=== PATIENT | female | born 1960 | race Caucasian/White ===

== ENCOUNTER → 2017-02-05 | Outpatient (CLI) | payer BC ==
--- NOTE | 2017-02-05 13:51 | KCIC ---
THORACIC SPINE 3V Indication: Right mid upper back pain for 6 months. . Comparison: No comparison is available. FINDINGS: No evidence of an acute fracture. Alignment is intact without significant subluxation. No evidence of paraspinal soft tissue swelling. IMPRESSION: No obvious acute radiographic abnormality. Consider MRI thoracic spine if further workup is warranted. Electronically signed by: Kian Poole MD (02/05/2017 1:48 PM) [facility]-KCIC2
== END | disposition home or self-care (01) ==
LOC: KCIC 13:07
PROVIDERS: ATTEND Family Medicine
DX: M54.6 Pain in thoracic spine (principal)
CPT/HCPCS: 72072

== ENCOUNTER → 2017-03-02 | Outpatient (CLI) | payer BC ==
--- NOTE | 2017-03-02 14:17 | KCIC ---
Indication: Right-sided back pain for 6 months, recent fall Technique: Axial images and coronal and sagittal reformatted images are provided. Comparison is made to radiographs from February 05, 2017. One or more of the following individualized dose reduction techniques were utilized for this examination: 1. Automated exposure control 2. Adjustment of the mA and/or kV according to patient size 3. Use of iterative reconstruction technique Findings: There is no fracture. Vertebral body height is maintained throughout. There is endplate sclerosis anteriorly at T9-T10. This appears degenerative with mild spurring anteriorly at this level. There is no malalignment. There is no definite high-grade canal or foraminal compromise at any level. Patient appears to have transitional type anatomy. 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 What is considered L1 has a nonunited right transverse process. There is apical scarring. There is emphysema which is at least moderate. IMPRESSION: 1. Negative for fracture in the thoracic spine. 2. Mild degenerative changes greatest at T9-T10. 3. 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 L1 right transverse process is nonunited. 4. Emphysema and presumed apical scarring. Electronically signed by: Marcel Grissom MD (03/02/2017 2:14 PM) [facility]KCIC[facility]
== END | disposition home or self-care (01) ==
LOC: KCIC CT 13:06
PROVIDERS: ATTEND Family Medicine
DX: M51.24 Other intervertebral disc displacement, thoracic region (principal); J43.9 Emphysema, unspecified; W19.XXXD Unspecified fall, subsequent encounter
CPT/HCPCS: 72128

== ENCOUNTER 2018-08-19 11:19 | Inpatient (IN) | payer OTHER ==
[~2018-08-19] VITALS: Ht 157.5 cm; Wt 39.7 kg
--- NOTE | 2018-08-19 13:33 | HP ---
ADMIT DATE: 08/19/2018 CHIEF COMPLAINT: Syncopal episode and atrial fibrillation. HISTORY OF PRESENT ILLNESS: A 58-year-old white female who was seen in the office on the day of admission having had what sounds like a syncopal episode 2 days prior to admission. She was standing in her garden and then she woke up and had some pain in her head and her upper chest and some abrasions. She does not recall falling or any chest pain, shortness of breath or any other specific complaints recently. In the office, she was found to be in atrial fibrillation with controlled ventricular response and because of the etiology of the syncope and the uncertainty of the cardiac arrhythmia or duration, she was admitted. MEDICATIONS: Listed per the chart. MEDICAL HISTORY: No previous cardiovascular history. SOCIAL HISTORY: Smoker, , nondrinker. No prior lab abnormalities. REVIEW OF SYSTEMS: No other specific complaints at this time. She specifically denies anginal type symptoms or arrhythmias. OBJECTIVE: HEAD: Some abrasions on the forehead, but no lacerations. EYES, EARS, NOSE AND THROAT: Clear. NECK: No carotid bruits, JVD, nodes or thyroid enlargement. CARDIOVASCULAR: Regular rate, feels moderately irregular at times. No murmurs heard. ABDOMEN: Soft, benign and nontender. NEUROLOGIC: She moves all extremities. Cranial nerves 2 through 12 intact. Cerebellar, motor, sensory and reflexes are normal. No ataxia or gait abnormalities are noted. GENITOURINARY AND RECTAL: Deferred. ASSESSMENT: 1. Syncope, etiology undetermined, must consider cardiovascular source. 2. Atrial fibrillation that may be intermittent and duration and etiology is unknown. 4. Chronic obstructive pulmonary disease and chronic tobacco abuse. PLAN: As ordered. ANJU DIANA MD DR: CORNELIUS/niranjan JOB#: [id number] / [id number]
[2018-08-19 13:53] VITALS: BP 130/80
[2018-08-19] MEDS: GABAPENTIN 300 MG CAPSULE. PO SCH ×2 (14:00→15:40)
--- NOTE | 2018-08-19 14:00 | NUR ---
The patient, CHONG PATEL, 58 y/o, F admitted by ANJU DIANA MD, was given written information regarding hospital policies, unit procedures and contact persons. Valuables were checked and kept with patient at bedside. Home medications given back to patient's significant other to bring back home.
[2018-08-19] MEDS ORDERED: TEMA30CA PO (14:05)
[2018-08-19] MEDS ORDERED: IBUP-1027 PO (14:05)
[2018-08-19] MEDS ORDERED: ALEN70TA6 PO (14:05)
[2018-08-19] MEDS ORDERED: GABA300C18 PO (14:05)
[2018-08-19] MEDS ORDERED: CYCL10TA2 PO (14:05)
[2018-08-19] MEDS ORDERED: GABA600T7 PO (14:05)
[2018-08-19] MEDS ORDERED: OMEP40CA5 PO (14:05)
[2018-08-19] MEDS ORDERED: VENTOLIN HFA18 GM INH (14:06)
[2018-08-19 15:15] LABS: BASO % 0 % (0-3); EOS # 0.1 x10^3/uL (0.0-0.7); EOS % 1 % (0-3); HEMATOCRIT 37.9 % (36.0-47.0); HEMOGLOBIN 12.4 g/dL (12.0-15.5); LYMPH # 2.8 x10^3/uL (1.0-4.8); LYMPH % 28 % (24-48); MEAN CORPUSCULAR HEMOGLOBIN 32 pg (25-35); MEAN CORPUSCULAR HGB CONC 33 g/dL (31-37); MEAN CORPUSCULAR VOLUME 96 fL (79-100); MONO # 0.7 x10^3/uL (0.0-1.1); MONO % 7 % (0-9); NEUT # 6.6 x10^3uL (1.8-7.7); NEUT % 65 % (31-73); PLATELET COUNT 229 x10^3/uL (140-400); RED BLOOD COUNT 3.94 x10^6/uL (3.50-5.40); RED CELL DISTRIBUTION WIDTH 13.3 % (11.5-14.5); WHITE BLOOD COUNT 10.1 x10^3/uL (4.0-11.0)
[2018-08-19 15:30] LABS: ALBUMIN 3.6 g/dL (3.4-5.0); ALBUMIN/GLOBULIN RATIO 1.1 (1.0-1.7); CALCIUM 8.7 mg/dL (8.5-10.1); CREATININE 0.5 mg/dL (0.6-1.0); GFR 125.9; POTASSIUM 3.7 mmol/L (3.5-5.1); TOTAL BILIRUBIN 0.3 mg/dL (0.2-1.0); TOTAL PROTEIN 6.8 g/dL (6.4-8.2)
[2018-08-19 15:37] VITALS: BP 145/83
[2018-08-19] MEDS: ALPRAZolam 1 MG TABLET PO PRN (15:40)
[2018-08-19] MEDS: IBUPROFEN 400 MG TABLET. PO PRN (15:40)
--- NOTE | 2018-08-19 15:41 | CARD ---
MR#: [id number] Date of Study: 08/19/2018 Ordering Physician: ANJU DIANA, Referring Physician: ANJU DIANA, Tech: Janette Baeza APPROVED REPORT EXAM: Two-dimensional and M-mode echocardiogram with Doppler and color Doppler. Other Information Quality : AverageHR: 101bpm INDICATION Atrial Fibrillation Syncope RISK FACTORS Smoking 2D DIMENSIONS RVDd2.1 (2.9-3.5cm)Left Atrium(2D)2.0 (1.6-4.0cm) IVSd0.9 (0.7-1.1cm)Aortic Root(2D)2.6 (2.0-3.7cm) LVDd3.2 (3.9-5.9cm)LVOT Diameter2.0 (1.8-2.4cm) PWd0.8 (0.7-1.1cm)LVDs2.4 (2.5-4.0cm) FS (%) 26.8 %SV22.7 ml Aortic Valve AoV Peak Jarad.128.7cm/sAoV VTI22.9cm AO Peak GR.6.6mmHgLVOT VTI 16.32cm AO Mean GR.3mmHg Mitral Valve MV E Avmdvigu72.0cm/sMV DECEL QKSE877vk MV A Lgicwdsy27.3cm/sE/A Ratio1.1 TDI Lateral E' P. V9.98cm/sMedial E' P. V10.88cm/s E/Lateral E'8.5E/Medial E'7.8 Tricuspid Valve TR P. Nzgvspjp801tz/sRAP UKTCGDNA6ajAu TR Peak Gr.92peWrPOHC03mmAp Pulmonary Vein S1 Lqlznzwg21.2cm/sS2 Kegvbdyj69.18cm/s D2 Ewajbnqc62.2cm/sPVa bmxugejv25ekzr LEFT VENTRICLE The left ventricle is normal size. There is normal left ventricular wall thickness. The left ventricu lar systolic function is normal and the ejection fraction is within normal range. The Ejection Fracti on is 55-60%. There is normal LV segmental wall motion. Transmitral Doppler flow pattern is Grade II- pseudonormal filling dynamics. RIGHT VENTRICLE The right ventricle is normal size. There is normal right ventricular wall thickness. The right ventr icular systolic function is normal. ATRIA The left atrium size is normal. The right atrium size is normal. The interatrial septum is intact wit h no evidence for an atrial septal defect or patent foramen ovale as noted on 2-D or Doppler imaging. AORTIC VALVE The aortic valve is normal in structure and function. Doppler and Color Flow revealed no significant aortic regurgitation. There is no significant aortic valvular stenosis. MITRAL VALVE The mitral valve is normal in structure and function. There is no evidence of mitral valve prolapse. There is no mitral valve stenosis. Doppler and Color-flow revealed trace to mild mitral regurgitation . TRICUSPID VALVE The tricuspid valve is normal in structure and function. Doppler and Color Flow revealed trace tricus pid regurgitation with an estimated PAP of 32 mmHg. There is no tricuspid valve stenosis. PULMONIC VALVE The pulmonic valve is not well visualized. Doppler and Color Flow revealed no pulmonic valvular regur gitation. GREAT VESSELS The aortic root is normal in size. The IVC is normal in size and collapses >50% with inspiration. PERICARDIAL EFFUSION There is no evidence of significant pericardial effusion. Critical Notification Critical Value: No <Conclusion> The left ventricle is normal size. The left ventricular systolic function is normal and the ejection fraction is within normal range. The Ejection Fraction is 55-60%. There is no significant aortic valvular stenosis. Doppler and Color Flow revealed no significant aortic regurgitation. Doppler and Color-flow revealed trace to mild mitral regurgitation. Doppler and Color Flow revealed trace tricuspid regurgitation with an estimated PAP of 32 mmHg. Signed by : Beau Payne MD Electronically Approved : 08/19/2018 15:41:13
--- NOTE | 2018-08-19 15:57 | RAD ---
CT HEAD WITHOUT CONTRAST 08/19/2018 3:11 PM Indication: headache, fell at home Comparison: None available Procedure: Multidetector CT imaging of the head was performed without the administration of contrast. Findings: There is no evidence of acute intracranial hemorrhage. There is no evidence of acute territorial infarction. Please note that CT is limited for evaluation of acute ischemia. No mass effect or midline shift is identified . The ventricles and basilar cisterns have an appropriate appearance. No abnormal extra-axial fluid collections are seen. No acute osseous changes are identified. Impression: No evidence of acute intracranial abnormality CT DOSING PQRS STATEMENT: One or more of the following individualized dose reduction techniques were utilized for this examination: 1. Automated exposure control 2. Adjustment of the mA and/or kV according to patient size 3. Use of iterative reconstruction technique Electronically signed by: Luan Ivy MD (08/19/2018 3:54 PM) [facility]
--- NOTE | 2018-08-19 16:23 | RAD ---
Single view of the chest. 08/19/2018 3:04 PM Indication: LEFT SIDED RIB PAIN AFTER FALL X2 DAYS AGO Comparison: None Findings: Hyperinflation appears to be present. There is no focal consolidation. There is no pleural effusion or pneumothorax. The cardiomediastinal silhouette and pulmonary vasculature are within normal limits. No displaced rib fracture or other acute osseous abnormality is seen. Impression: 1. Hyperinflation. Correlate with history of obstructive lung disease such as COPD or asthma 2. No displaced rib fracture or other acute osseous abnormality Electronically signed by: Luan Ivy MD (08/19/2018 4:20 PM) [facility]
[2018-08-19 19:25] VITALS: BP 109/68
[2018-08-19] MEDS ORDERED: TEMAZEPAM 15 MG CAPSULE PO PRN (19:45)
[2018-08-19] MEDS: TEMAZEPAM 15 MG CAPSULE PO PRN (20:22)
[2018-08-19 22:45] VITALS: BP 142/71
[2018-08-20] VITALS (9 sets, daily range): BP systolic 122–146; BP diastolic 69–85
[2018-08-20] MEDS: IBUPROFEN 400 MG TABLET. PO PRN (08:04)
[2018-08-20] MEDS: GABAPENTIN 300 MG CAPSULE. PO SCH ×3 (08:06→20:37)
[2018-08-20] MEDS: PANTOPRAZOLE 40 MG TABLET.DR. PO SCH (08:06)
[2018-08-20] MEDS: ALPRAZolam 1 MG TABLET PO PRN ×2 (08:06→20:47)
--- NOTE | 2018-08-20 09:05 | PDOC ---
Provider Note Provider Note vss, nsr, no more AF as per office ekg, no more syncopal sxs- exam same- labs, echo ok- ct head clear of bleed, no neuro findings- will consult to consider event monitor, also do carotid doppler re etiology of syncope ANJU DIANA MD Aug 20, 2018 09:05
--- NOTE | 2018-08-20 09:38 | EKG ---
[facility] [address] [place] [address] Test Date: 2018-08-20 Test Time: 09:32:40 Pat Name: CHONG PATEL Department: Room: 211 1 Gender: F Sexual Assault Counselor: NAREN : 1960 Requested By: ANJU DIANA Order Number: [id number] Reading MD: Deniz Greenwood MD Measurements Intervals [place] Rate: 80 P: 63 VT: 142 QRS: 66 QRSD: 80 T: 71 QT: 388 QTc: 451 Interpretive Statements SINUS RHYTHM ATRIAL PREMATURE COMPLEX(ES) INCOMPLETE RIGHT BUNDLE BRANCH BLOCK OTHERWISE NORMAL ECG Electronically Signed On 08-20-2018 21:31:06 CDT by Deniz Greenwood MD
--- NOTE | 2018-08-20 10:58 | RAD ---
EXAM: Carotid Doppler sonogram. HISTORY: Syncope. TECHNIQUE: Silva scale and color Doppler sonographic evaluation of the neck with spectral waveform analysis was performed and static images are submitted for review. FINDINGS: The peak systolic velocity within the right common carotid artery is 86 cm/sec. The peak systolic velocity within the right internal carotid artery is 94 cm/sec and the end diastolic velocity within the right internal carotid artery is 37 cm/sec. The right ICA/CCA ratio is 1.25. The peak systolic velocity within the left common carotid artery is 1 heart and 5 cm/sec. The peak systolic velocity within the left internal carotid artery is 116 cm/sec and the end diastolic velocity within the left internal carotid artery is 43 cm/sec. The left ICA/CCA ratio is 1.34. There is normal antegrade flow within both vertebral arteries. IMPRESSION: No Doppler evidence of hemodynamically significant stenosis within the carotid or vertebral arteries. PQRS Compliance Statement - Stenosis calculations for CT, MR and conventional angiography are based upon measurement of the distal ICA diameter in accordance with the NASCET methodology. Stenosis calculations for carotid ultrasound studies are derived from validated velocity criteria which are known to correlate with the NASCET methodology. Electronically signed by: Iris Dos Santos MD (08/20/2018 10:56 AM) [facility]2
--- NOTE | 2018-08-20 13:51 | NUR ---
SS following for discharge planning. SS reviewed pt chart. Pt is from home and is currently on room air. No discharge needs noted at this time. SS will continue to follow for pending discharge needs.
--- NOTE | 2018-08-20 17:48 | PDOC2 ---
CARDIAC CONSULT DATE OF CONSULT Date of Consult DATE: 08/20/18 TIME: 17:10 REASON FOR CONSULT Reason for Consult: PAFIB, syncope REFERRING PHYSICIAN Referring Physician: Clark SOURCE Source: Chart review, Patient HISTORY OF PRESENT ILLNESS HISTORY OF PRESENT ILLNESS This is a pleasant 58 yo female admitted for complains of passing out and afib. Reports that Sunday she was kneeling and and was trying to get a flower when she just passed out. She could not recall what happened prior to this episode but she did sustained bruising below her eyes. Denies repeatedly that she was standing up and actually stood up after regaining consciousness and felt shocking sensation briefly throughout her body. Could not tell me exactly if she was or having any palpitations but denies any nausea, vomiting and just felt likely she was anxious. Reports no chest pain, SOA and actually this event is the first time this ever happened to her. No prior syncope, frequent dizziness or palpitations. No hx of CAD or any arrhythmias but had murmur as a child with hx of rheumatic heart disease. She went to her PCP this week and was noted with AFIB and so far as an inpt no noted AFIB but with SR with occasional PACs. No Bowel and bladder incontinence or hx of seizures associated with her syncopal spell. She does not take any BP meds. No recent fever or chils. No hx of VTE or any bleeding disorders. PAST MEDICAL HISTORY Cardiovascular: No pertinent hx Pulmonary: COPD CENTRAL NERVOUS SYSTEM: Other (No pertinent history) GI: GERD Heme/Onc: No pertinent hx Hepatobiliary: No pertinent hx Psych: No pertinent hx Musculoskeletal: Osteoarthritis Infectious disease: No pertinent hx ENT: No pertinent hx Renal/: No pertinent hx Endocrine: No pertinent hx, Osteoporosis Dermatology: No pertinent hx PAST SURGICAL HISTORY Past Surgical History: Tonsillectomy, Hysterectomy FAMILY HISTORY Family History: Coronary Artery Disease (father and brothers) SOCIAL HISTORY Smoke: <1 pack per day (>40 yrs) ALCOHOL: none Drugs: None Lives: with Family CURRENT MEDICATIONS CURRENT MEDICATIONS Current Medications Medications (Trade) Dose Ordered Sig/Zaira Route PRN Reason Start Time Stop Time Status Last Admin Dose Admin Pantoprazole Sodium (Protonix) 40 mg DAILYAC PO 08/20/18 07:30 08/20/18 08:06 Temazepam (Restoril) 15 mg PRN QHS PRN PO INSOMNIA, MAY REPEAT X1 08/19/18 20:20 08/19/18 20:22 ALLERGIES ALLERGIES: Coded Allergies: hydrocodone (Verified Allergy, Intermediate, Nausea and Vomiting, 08/19/18) ROS Review of System 14 point ROS evaluated with pertinent positives noted per HPI PHYSICAL EXAM General: Alert, Oriented X3, Cooperative, No acute distress HEENT: Atraumatic, Mucous membr. moist/pink Lungs: Clear to auscultation, Normal air movement Heart: Regular rate (SR), Normal S1, Normal S2, Other (2/6 systolic murmur to apex) Extremities: No cyanosis, No edema Skin: No breakdown, Other (bilateral inferoorbital ecchymoses) Neuro: Normal speech, Sensation intact Psych/Mental Status: Mental status NL, Mood NL MUSCULOSKELETAL: Osteoarthritic changes both hands VITALS VITALS Vital Signs Date Time Temp Pulse Resp B/P (MAP) Pulse Ox O2 Delivery O2 Flow Rate FiO2 08/20/18 14:55 98.2 77 16 146/81 (102) 97 Room Air 98.2 ASSESSMENT/PLAN ASSESSMENT/PLAN 1. Syncope with infraorbital contusion from fall: possibly vasovagal. Could not definitively pinpoint that this is arrhythmia induced but possible given new finding of AFIB 2. AFIB: isolated so far noted in PCP's office, no copy. No event as an inpt. EF and WM nml 3. COPD with mild pulmonary HTN 4. Tobaccoism Recommendations 1. ECASA 81 mg. negative for CSH, will check for orthostatic readings. 2. Will ascertain AFIB burden via outpt event monitor to further any need for treatment. 3. Monitor overnight and anticipate DC tomorrow 3. Smoking cessation. SARA JOSEPH FILTER CHANGING TECHNICIAN Aug 20, 2018 17:48
[2018-08-20] MEDS: TEMAZEPAM 15 MG CAPSULE PO PRN (20:37)
[2018-08-21 03:00] VITALS: BP 119/67
[2018-08-21] MEDS: IBUPROFEN 400 MG TABLET. PO PRN (03:17)
[2018-08-21 07:00] VITALS: BP 123/74
[2018-08-21] MEDS: PANTOPRAZOLE 40 MG TABLET.DR. PO SCH (07:49)
[2018-08-21] MEDS ORDERED: ASPIRIN ENTERIC COATED 81 MG TABLET.DR. PO SCH (08:00)
[2018-08-21] MEDS: GABAPENTIN 300 MG CAPSULE. PO SCH (08:05)
--- NOTE | 2018-08-21 08:59 | PDOC ---
Provider Note Provider Note [id number] NAJU DIANA MD Aug 21, 2018 08:59
[2018-08-21] MEDS: ALPRAZolam 1 MG TABLET PO PRN (09:59)
--- NOTE | 2018-08-21 10:14 | PDOC ---
CARDIO Progress Notes Date and Time Date of Service 08/21/2018 Time of Evaluation 1000 Subjective Subjective: No Chest Pain, No shortness of breath, No Palpitations Vitals Vitals Vital Signs Date Time Temp Pulse Resp B/P (MAP) Pulse Ox O2 Delivery O2 Flow Rate FiO2 08/21/18 08:00 Room Air 08/21/18 07:00 97.8 73 16 123/74 (90) 100 97.8 Weight Weight [ ] Input and Output Intake and Output Intake and Output 08/21/18 07:00 Intake Total 1080 ml Output Total 2280 ml Balance -1200 ml Intake Oral 1080 ml Output Urine Total 2280 ml # Voids 2 # Bowel Movements 1 Physical Exam HEENT: Neck Supple W Full Motion Chest: Symmetric LUNGS: Clear to Auscultation Heart: S1S2, RRR (sr) Abdomen: Soft N/T Extremities: No Edema, No Calf Tenderness Neurology: alert, oriented, follow commands Assessment Assessment 1. Syncope with infraorbital contusion from fall: possibly vasovagal. Could not definitively pinpoint that this is arrhythmia induced but possible given new finding of AFIB 2. AFIB: isolated so far noted in PCP's office, no copy. Remains with no event as an inpt. EF and WM nml 3. COPD with mild pulmonary HTN 4. Tobaccoism Recommendations 1. ECASA 81 mg. negative for CSH and orthostasis 2. Will ascertain AFIB burden via outpt event monitor to further any need for treatment. 3. Follow up in 4 weeks 4. Smoking cessation. SARA JOSEPH APRN Aug 21, 2018 10:14
[2018-08-21] MEDS ORDERED: ASPI-630 PO (10:23)
--- NOTE | 2018-08-21 11:08 | NUR ---
Discharge Note: DELMY PATEL Discharge instructions and discharge home medications reviewed with Patient and a copy given. All questions have been answered and understanding verbalized. Cardiology office called to set up event monitor and follow up appointments. Information given to patient about what to do at home. Patient went home with .
--- NOTE | 2018-08-21 15:44 | DS ---
DATE OF DISCHARGE: 08/21/2018 HOSPITAL SUMMARY: A 58-year-old white female came in after an episode of syncope at home and transient atrial fibrillation found in the office on an EKG. Her exam was normal sinus rhythm by the time she was examined later in the office. CBC, labs, TSH, echocardiogram and CT scan of the head, all within normal limits including carotid Doppler studies. She has had no further arrhythmias of any kind here in the hospital and Cardiology plans her an event monitor, which will be worn for a period of time to monitor for any transient episodes of atrial fibrillation or other arrhythmias that would have accounted for the syncope. She is comfortable with this plan. FINAL DIAGNOSES: 1. Syncope, etiology undetermined. 2. Atrial fibrillation, transient, resolved. OPERATIONS, PROCEDURES, COMPLICATIONS: None. CONSULTATIONS: Dr. Cheng's group. DISPOSITION: Home meds remain the same. Regular diet. Activity as tolerated. Office followup as needed based on responses and results of the monitor. ANJU DIANA MD DR: CORNELIUS/nts JOB#: [id number] / [id number]
== END 2018-08-21 11:00 | disposition home or self-care (01) | DRG 310 ==
LOC: 2 NORTH 13:03
PROVIDERS: ADMIT Family Medicine; ATTEND Family Medicine
DX: I48.91 Unspecified atrial fibrillation (principal); F17.210 Nicotine dependence, cigarettes, uncomplicated; J44.9 Chronic obstructive pulmonary disease, unspecified; K21.9 Gastro-esophageal reflux disease without esophagitis; M19.90 Unspecified osteoarthritis, unspecified site; S05.10XA Contusion of eyeball and orbital tissues, unspecified eye, initial encounter; W18.39XA Other fall on same level, initial encounter; I27.20 Pulmonary hypertension, unspecified; Z90.710 Acquired absence of both cervix and uterus; Z82.49 Family history of ischemic heart disease and other diseases of the circulatory system; Z88.5 Allergy status to narcotic agent; Z71.6 Tobacco abuse counseling; Y93.89 Activity, other specified; Y92.89 Other specified places as the place of occurrence of the external cause; Y99.8 Other external cause status
CPT/HCPCS: 36415; 70450; 71045; 80053; 84443; 85025; 93005; 93306; 93880

== ENCOUNTER 2019-11-09 19:05 | Emergency (ER) | payer SELFPAY ==
[~2019-11-09] VITALS: Ht 157.5 cm; Wt 36.3 kg
[~2019-11-09 19:05] MED LIST: ALEN70TA6 PO; ASPI-630 PO; CYCL10TA2 PO; GABA300C18 PO; GABA600T7 PO; IBUP-1027 PO; OMEP40CA45 PO; TEMA30CA PO; VENTOLIN HFA18 GM INH
[2019-11-09 19:17] VITALS: BP 126/73
[2019-11-09] MEDS ORDERED: TRAM-48 PO (19:31)
[2019-11-09] MEDS ORDERED: ONDA4TAB7 PO (19:31)
--- NOTE | 2019-11-09 19:32 | PHYS DOC ---
Past Medical History Past Medical History: Anxiety, GERD Past Surgical History: Tonsillectomy, Tubal ligation Smoking Status: Current Every Day Smoker Alcohol Use: None General Adult EDM: Chief Complaint: DENTAL PROBLEM HPI: HPI: Patient is a 59 year old presents with the chief complaint of dental pain. Pain located bilateral upper and lower posterior and left lower. Patient has been seen by PCP and placed on PCN. Patient states the took tylenol with no relief. Took norco 2.5mg and it causes nausea. Patient has not follow up with dentist. Review of Systems: Review of Systems: Constitutional: Denies fever or chills. [] Eyes: Denies change in visual acuity. [] HENT: Denies nasal congestion or sore throat. [positive dental pain] Respiratory: Denies cough or shortness of breath. [] Cardiovascular: Denies chest pain or edema. [] GI: Denies abdominal pain, nausea, vomiting, bloody stools or diarrhea. [] : Denies dysuria. [] Musculoskeletal: Denies back pain or joint pain. [] Integument: Denies rash. [] Neurologic: Denies headache, focal weakness or sensory changes. [] Endocrine: Denies polyuria or polydipsia. [] Lymphatic: Denies swollen glands. [] Psychiatric: Denies depression or anxiety. [] Heart Score: Risk Factors: Risk Factors: DM, Current or recent (<one month) smoker, HTN, HLP, family history of CAD, obesity. Risk Scores: Score 0 - 3: 2.5% MACE over next 6 weeks - Discharge Home Score 4 - 6: 20.3% MACE over next 6 weeks - Admit for Clinical Observation Score 7 - 10: 72.7% MACE over next 6 weeks - Early Invasive Strategies Allergies: Allergies: Allergies Coded Allergies Type Severity Reaction Last Updated Verified hydrocodone Allergy Intermediate Nausea and Vomiting 08/19/18 Yes Physical Exam: PE: Constitutional: Well developed, well nourished, no acute distress, non-toxic appearance. [] HENT: Normocephalic, atraumatic, bilateral external ears normal, oropharynx moist, no oral exudates, nose normal. [extensive dental decay, mild gum swelling upper and lower] Eyes: PERRLA, EOMI, conjunctiva normal, no discharge. [] Neck: Normal range of motion, no tenderness, supple, no stridor. [] Cardiovascular:Heart rate regular rhythm, no murmur [] Lungs & Thorax: Bilateral breath sounds clear to auscultation [] Abdomen: Bowel sounds normal, soft, no tenderness, no masses, no pulsatile masses. [] Skin: Warm, dry, no erythema, no rash. [] Back: No tenderness, no CVA tenderness. [] Extremities: No tenderness, no cyanosis, no clubbing, ROM intact, no edema. [] Neurologic: Alert and oriented X 3, normal motor function, normal sensory function, no focal deficits noted. [] Psychologic: Affect normal, judgement normal, mood normal. [] Current Patient Data: Vital Signs: Vital Signs Date Time Temp Pulse Resp B/P (MAP) Pulse Ox O2 Delivery O2 Flow Rate FiO2 11/09/19 19:17 97.9 16 16 126/73 (90) 100 Room Air 97.9 EKG: EKG: [] Radiology/Procedures: Radiology/Procedures: [] Course & Med Decision Making: Course & Med Decision Making Pertinent Labs and Imaging studies reviewed. (See chart for details) [] Dragon Disclaimer: Dragon Disclaimer: This electronic medical record was generated, in whole or in part, using a voice recognition dictation system. Departure Departure Impression: Primary Impression: Pain, dental Disposition: 01 HOME, SELF-CARE Condition: STABLE Referrals: ANJU DIANA MD (PCP) Patient Instructions: Dental Pain Scripts Tramadol Hcl (ULTRAM) 50 Mg Tablet 1 TAB PO PRN Q6HRS PRN for pain MDD 4 Tablet(s) for 7 Days, #20 TAB 0 Refills Prov: WILBERT TOBIN DO 11/09/19 Ondansetron Hcl (ZOFRAN) 4 Mg Tablet 1 TAB PO Q6HRS, #20 TAB Prov: WILBERT TOBIN DO 11/09/19 Justicifation of Admission Dx: Justifications for Admission: Justification of Admission Dx: N/A WILBERT TOBIN DO Nov 09, 2019 19:31
== END 2019-11-09 19:46 | disposition home or self-care (01) ==
LOC: ER 19:05
DX: K08.89 Other specified disorders of teeth and supporting structures (principal); R11.0 Nausea; R60.0 Localized edema; F41.9 Anxiety disorder, unspecified; K21.9 Gastro-esophageal reflux disease without esophagitis; F17.200 Nicotine dependence, unspecified, uncomplicated; Z90.89 Acquired absence of other organs; Z98.51 Tubal ligation status; Z88.5 Allergy status to narcotic agent
CPT/HCPCS: 99283